=== PATIENT | female | born 1995 | race Caucasian/White ===

== ENCOUNTER 2022-05-04 12:05 | Outpatient (CLI) | payer OTHER | END 2022-05-05 11:00 | disposition home or self-care (01) | LOC: OBS/DEL 12:05 | PROVIDERS: ATTEND Obstetrics & Gynecology | DX: O26.892 Other specified pregnancy related conditions, second trimester (principal); Z3A.27 27 weeks gestation of pregnancy; W18.39XA Other fall on same level, initial encounter; Y93.89 Activity, other specified; Y92.098 Other place in other non-institutional residence as the place of occurrence of the external cause; Y99.8 Other external cause status ==

== ENCOUNTER 2022-08-01 07:45 | Inpatient (IN) | payer OTHER ==
[~2022-08-01] VITALS: Ht 152.4 cm; Wt 78.5 kg
[~2022-08-01 07:45] MED LIST: PRENATAL VITAM1 EAC4 PO
== END 2022-08-03 15:24 | disposition home or self-care (01) | DRG 807 ==
LOC: OBS/DEL 07:45 → LDR 15:41 → OB/GYN 15:41 → OBS/DEL 15:41 → OB/GYN 20:58
PROVIDERS: ADMIT Obstetrics & Gynecology; ATTEND Obstetrics & Gynecology
PROC: 10E0XZZ Delivery of Products of Conception, External Approach (ICD-10-PCS; principal; 2022-08-01)
PROC: 0HQ9XZZ Repair Perineum Skin, External Approach (ICD-10-PCS; 2022-08-01)
PROC: 0UQG7ZZ Repair Vagina, Via Natural or Artificial Opening (ICD-10-PCS; 2022-08-01)
PROC: 4A1HXCZ Monitoring of Products of Conception, Cardiac Rate, External Approach (ICD-10-PCS; 2022-08-01)
DX: O70.0 First degree perineal laceration during delivery (principal); Z37.0 Single live birth; Z3A.39 39 weeks gestation of pregnancy; Z20.822 Contact with and (suspected) exposure to COVID-19; O99.824 Streptococcus B carrier state complicating childbirth